=== PATIENT | female | born 1955 | race Asian ===

== ENCOUNTER → 2024-10-01 08:08 | Outpatient (REF) | payer MEDICARE, SELFPAY | LOC: MRI 3T 08:08 | PROVIDERS: ATTENDING PHYSICIAN Orthopaedic Surgery; FAMILY PHYSICIAN Family Medicine | DX: S46.012A Strain of muscle(s) and tendon(s) of the rotator cuff of left shoulder, initial encounter (principal); M25.512 Pain in left shoulder | CPT/HCPCS: 73221 ==